=== PATIENT | female | born 1985 | race Two or more races ===

== ENCOUNTER 2019-08-26 21:16 | Emergency (ER) | payer OTHER ==
[~2019-08-26] VITALS: Ht 175.3 cm; Wt 97.7 kg
[2019-08-27] MEDS ORDERED: ACETAMINOPHEN 500 MG TABLET PO ONE (00:15)
[2019-08-27 00:44] VITALS: BP 140/88
== END 2019-08-27 00:45 | disposition home or self-care (01) ==
LOC: EMS 21:16
DX: Z03.818 Encounter for observation for suspected exposure to other biological agents ruled out (principal); R05 Cough; R09.81 Nasal congestion; M79.10 Myalgia, unspecified site
CPT/HCPCS: 71045; 81025; 99284; U0003

== ENCOUNTER 2019-12-02 16:45 | Emergency (ER) | payer OTHER ==
[~2019-12-02] VITALS: Ht 175.3 cm; Wt 115.0 kg
[2019-12-02 16:55] VITALS: BP 123/65
== END 2019-12-02 17:57 | disposition left against medical advice (07) ==
LOC: EMS 16:45
DX: R07.9 Chest pain, unspecified (principal); Z53.21 Procedure and treatment not carried out due to patient leaving prior to being seen by health care provider
CPT/HCPCS: 93005

== ENCOUNTER 2022-04-27 04:14 | Emergency (ER) | payer OTHER ==
[~2022-04-27] VITALS: Ht 175.3 cm; Wt 90.9 kg
[2022-04-27 04:20] VITALS: BP 138/86
[2022-04-27 04:32] LABS: COVID AG,FIA SOURCE NASAL SWAB
[2022-04-27 04:40] LABS: RAPID GROUP A STREP NEGATIVE (NEGATIVE)
[2022-04-27 04:52] LABS: INFLUENZA TYPE A NEGATIVE FOR TYPE A (NEGATIVE); INFLUENZA TYPE B NEGATIVE FOR TYPE B (NEGATIVE)
[2022-04-27] MEDS ORDERED: MOXI3DRO27 OD (04:56)
[2022-04-27] MEDS ORDERED: AMOX250C4 PO (05:04)
== END 2022-04-27 05:40 | disposition home or self-care (01) ==
LOC: EMS 04:15
DX: H10.9 Unspecified conjunctivitis (principal); J40 Bronchitis, not specified as acute or chronic; F12.90 Cannabis use, unspecified, uncomplicated; Z91.013 Allergy to seafood; Z88.5 Allergy status to narcotic agent; Z20.822 Contact with and (suspected) exposure to COVID-19
CPT/HCPCS: 87430; 87804; 99283

== ENCOUNTER 2023-01-06 20:01 | Emergency (ER) | payer OTHER ==
[~2023-01-06] VITALS: Ht 175.3 cm; Wt 77.0 kg
[~2023-01-06 20:01] MED LIST: AMOX250C4 PO; MOXI3DRO27 OD
[2023-01-06 20:11] VITALS: BP 130/71; PULSE 83; RESP 17; TEMP 98.9
[2023-01-06] MEDS ORDERED: IBUP-1554 PO (23:10)
[2023-01-06] MEDS ORDERED: ONDA-104 PO (23:10)
[2023-01-06] MEDS ORDERED: HYDR-4723 PO (23:10)
[2023-01-06] MEDS ORDERED: ONDANSETRON HCL 4 MG TABLET PO ONE (23:15)
[2023-01-06] MEDS ORDERED: HYDROCODONE/ACETAMINOPHEN 5-325 MG TABLET PO ONE (23:15)
[2023-01-06] MEDS ORDERED: IBUPROFEN 600 MG TABLET PO ONE (23:15)
[2023-01-07] MEDS ORDERED: OMEP20 PO (00:33)
[2023-01-07] MEDS ORDERED: MAG30ORA11 PO (00:33)
[2023-01-07] MEDS ORDERED: HYDR-4723 PO (18:02)
== END 2023-01-07 01:09 | disposition home or self-care (01) ==
LOC: EMS 20:03
DX: S62.397A Other fracture of fifth metacarpal bone, left hand, initial encounter for closed fracture (principal); K29.70 Gastritis, unspecified, without bleeding; F17.210 Nicotine dependence, cigarettes, uncomplicated; F12.90 Cannabis use, unspecified, uncomplicated; Z88.5 Allergy status to narcotic agent; Z91.013 Allergy to seafood; X58.XXXA Exposure to other specified factors, initial encounter; Y93.89 Activity, other specified; Y92.89 Other specified places as the place of occurrence of the external cause; Y99.8 Other external cause status
CPT/HCPCS: 99284; 73130; 29125; Q0162

== ENCOUNTER 2025-01-16 23:18 | Emergency (ER) | payer OTHER ==
[~2025-01-16] VITALS: Ht 176.5 cm; Wt 104.3 kg
[~2025-01-16 23:18] MED LIST changes: +HYDR-4062 PO; +IBUP-1554 PO; +MAG30ORA11 PO; +OMEP-148 PO; +ONDA-104 PO
[2025-01-16 23:36] VITALS: BP 153/99; PULSE 104; RESP 18; TEMP 98.2; O2SAT 97
[2025-01-16] MEDS ORDERED: BUTE12CR TP (23:49)
== END 2025-01-17 00:07 | disposition home or self-care (01) ==
LOC: EMS 23:32
DX: O98.813 Other maternal infectious and parasitic diseases complicating pregnancy, third trimester (principal); B35.3 Tinea pedis; O99.323 Drug use complicating pregnancy, third trimester; F12.90 Cannabis use, unspecified, uncomplicated; Z3A.39 39 weeks gestation of pregnancy; Z88.5 Allergy status to narcotic agent; Z91.013 Allergy to seafood; Z79.899 Other long term (current) drug therapy
CPT/HCPCS: 99282; Z7502